=== PATIENT | female | born 1970 | race Caucasian/White ===

== ENCOUNTER 2016-07-06 23:17 | Emergency (ER) | payer OTHER ==
[~2016-07-06 23:17] MED LIST: CIPR-198 PO; HYDR-4003 PO; NPR500T PO; clonidine; suboxone
[2016-07-06 23:27] VITALS: BP 134/88; PULSE 89; RESP 20; O2SAT 100
--- NOTE | 2016-07-06 23:49 | ED.REPORT ---
HPI-Extremity Problem Upper Date of Service Jul 06, 2016 ED Provider: Dr. Bernard Cleary M.D. A 46 year old female with a remote history of cervical cancer presents to the ED with a right hand injury onset yesterday. The patient accidentally hyperextended fingers 2-5 of her right hand while closing a car door. The patient immediately experienced pain radiating up her forearm, described as "heat." The patient's hand and wrist have been intermittently numb ever since. She also reports hearing occasional crackling when she flexes her fingers. The patient denies other symptoms or injury/trauma. Nursing Notes Stated Complaint: RT HAND INJURY Chief Complaint: Extremity Trauma Nursing Notes Reviewed: Yes Allergies: Coded Allergies: Sulfa (Sulfonamide Antibiotics) (Verified Allergy, Severe, anaphylaxis, 07/06/16) cinnamon (Verified Allergy, Severe, Anaphylaxis, 07/06/16) Scheduled Ciprofloxacin (Ciprofloxacin) 500 Mg Tablet 500 MG PO BID Famotidine (Pepcid) 20 Mg Tablet 20 MG PO BID Scheduled PRN Hydrocodone-Acetaminophen 5-325 mg (Hydrocodone-Acetaminophen 5-325 mg) 1 Each Tablet 1 TABLET PO Q4H PRN PRN For Pain Naproxen (Naproxen) 500 Mg Tab 500 MG PO BID PRN PRN For Pain Naproxen (Naprosyn) 500 Mg Tablet 500 MG PO BID PRN PRN For Pain Miscellaneous Medications ([suboxone]) ([clonidine]) General Time Seen by MD: 23:48 Chief Complaint Hand injury right Hx Obtained From: Patient Arrived By: Walk-in Onset Occurred: Yesterday Symptom Duration: Since onset Location: : Forearm right: Hand right: Wrist right Quality: Painful (Heat) Severity: Current: Moderate Severity: Maximum: Moderate Associated with: Reports: Numb extremities, Denies: Fever, Unable to move joint Pertinent Negative: Relieved by nothing Immunizations: Unknown Recent Healthcare: No recent doctor visit Past Medical History Past Medical History Cervical cancer Past Surgical History Fallopian tube surgery Unilateral left oophorectomy Reports: Hysterectomy Smoking History Current Every Day Smoker Social History Alcohol Use: 1-3 per day Drug Use: Denies drug use Ambulatory Status Independent Review of Systems Review of Systems Note: + "Crackling" with right finger flexion Constitutional: Denies: Fever Musculoskeletal: Reports: Extremity pain (Right forearm, hand), Joint pain ( Right wrist) Neurologic: Reports: Numbness (Right hand and wrist) Complete sys rev & neg: except as marked. Respiratory: Denies: Non-productive cough, Shortness of breath GI: Denies: Diarrhea, Vomiting Physical Exam Initial Vital Signs Vital Signs (First) Date Time Temp Pulse Resp B/P Pulse Ox O2 Delivery O2 Flow Rate FiO2 07/06/16 23:27 36.6 89 20 134/88 100 Room Air Initial VS: Reviewed Head / Eyes: Atraumatic, Normocephalic ENT: Conjunctiva normal, No scleral icterus Neck: Supple, Full range of motion Skin: Warm, Dry, No cyanosis Neurologic: Alert, Oriented, Nonfocal Psychiatric: Mood/affect normal, Behavior normal, Normal thought content General/Constitutional: Awake, Alert, No acute distress Wrist / Hand: Full range of motion, No swelling, No deformity, Neurologic intact, Vascular intact Right Wrist: Positive: Tenderness present... Interpretation & Diagnostics X-Ray Interpretation Study Performed: 2 View X-Ray Ordered: Hand right Interpretation / Wet Read by: Wet read ED physician Interpretation: Normal exam Study Performed: 2 View X-Ray Ordered: Wrist right Interpretation / Wet Read by: Wet read ED physician Interpretation: Normal exam Re-Eval/Medical Decision Med Decision/Clinical Course 46-year-old Cipro flexion injury of the wrist. No fracture noted. Placed in a thumb spica Velcro splint for immobilization and protection of the wrist. Elevation and ice recommended. Follow up with PCP. Source of Hx: Old records Re-Evaluation/Progress : Time of Eval: 00:56 Patient Status: Condition improved Re-Evaluation/Progress Note: Discussed with patient x-ray results, diagnosis, and plan for soft splint and discharge. Follow-up and return to the ER instructions given. Patient agrees with plan for care and all questions were addressed. Counseled Regarding: Diagnosis, Need for follow-up, When/why to return to ED Discharge & Departure Shift Change Sign-Out Response to Therapy: Improved Impression: Primary Impression: Sprain of wrist Encounter type: initial encounter Laterality: right Qualified Code: S63.501A - Unspecified sprain of right wrist, initial encounter Disposition: Home Discharge Condition All VS Reviewed: Yes Condition: Improved Patient Instructions: Wrist Injury (ED) Additional Instructions: Elevate whenever possible above the level of the heart. Wear splint as long as it is tender. Ice frequently in the first twenty-four hours. You can switch over to heat after that Follow-up with your doctor in the office. Return if any immediate issues. Naprosyn twice daily with food. Referrals: Gaviota Russell MD (PCP) Scribe Attestation Portions of this note were transcribed by Nena Preston. I, Dr. Cleary, personally performed the history, physical exam, and medical decision-making; I reviewed and confirmed the accuracy of the information in the transcribed note. Signed by: Tika Qureshi, 07/07/2016, 01:50 copies to: Gaviota Russell MD, Christopher W MD Jul 06, 2016 23:49 NENA PRESTON Jul 07, 2016 00:14
[2016-07-07] MEDS ORDERED: FAMO20T PO (00:59)
[2016-07-07] MEDS ORDERED: NAPR500T PO (00:59)
--- NOTE | 2016-07-07 09:09 | DRSVH ---
PROCEDURE: X-RAY RIGHT HAND, TWO VIEWS ([id number]) INDICATIONS: fall, numbness TECHNIQUE: 2 views of the hand(s) acquired. COMPARISON: None. FINDINGS: Bones: No fractures or dislocations. Carpal bones are normally aligned. No suspicious bony lesions . Soft tissues: No suspicious soft tissue calcifications. IMPRESSION: No displaced fracture seen. If there is continued pain, followup exam or additional samuel ging such as MRI or CT could be performed for further assessment. Dictated by: Anthony GABRIEL Interpreted: Missy Perales MD on 07/07/2016 at 9:08 Transcribed by: SUNNY on 07/07/2016 at 9:09 Approved by: Missy Perales M.D. on 07/07/2016 at 14:53
--- NOTE | 2016-07-07 09:10 | DRSVH ---
PROCEDURE: X-RAY RIGHT WRIST COMPLETE, MINIMUM THREE VIEWS ([id number]) INDICATIONS: fall, numbness TECHNIQUE: 4 views of the wrist were acquired. COMPARISON: None. FINDINGS: Bones: No fractures or dislocations. No suspicious bony lesions. Scaphoid view: Intact scaphoid. Soft tissues: No suspicious soft tissue calcifications. IMPRESSION: No displaced fracture seen. If there is continued pain, followup exam or additional samuel ging such as MRI or CT could be performed for further assessment. Dictated by: Anthony Grimes [facility] Interpreted: Missy Perales MD on 07/07/2016 at 9:09 Transcribed by: SUNNY on 07/07/2016 at 9:09 Approved by: Missy Perales M.D. on 07/07/2016 at 14:53
== END 2016-07-07 01:30 | disposition home or self-care (01) ==
LOC: SED 23:17
DX: S63.501A Unspecified sprain of right wrist, initial encounter (principal); X50.1XXA Overexertion from prolonged static or awkward postures, initial encounter; Y92.410 Unspecified street and highway as the place of occurrence of the external cause; Y93.89 Activity, other specified; Y99.8 Other external cause status; F17.200 Nicotine dependence, unspecified, uncomplicated; Z85.41 Personal history of malignant neoplasm of cervix uteri; Z88.2 Allergy status to sulfonamides

== ENCOUNTER 2016-08-05 00:36 | Emergency (ER) | payer OTHER ==
[~2016-08-05] VITALS: Ht 152.4 cm; Wt 77.3 kg
[~2016-08-05 00:36] MED LIST changes: +FAMO20T PO; +NAPR500T PO
[2016-08-05 00:40] VITALS: BP 151/84; PULSE 112; RESP 20; O2SAT 99
--- NOTE | 2016-08-05 01:10 | ED.REPORT ---
HPI-Extremity Problem Lower Date of Service Aug 05, 2016 ED Provider: Dr. Coats Pt is a 46 y/o female presenting to the ED due to right ankle injury onset prior to arrival. The patient was sitting with her right leg crossed and then stood up and stepped with her left foot and followed by her right foot which she describes as being asleep and heard a crunch sound. Pt c/o associated swelling of the right ankle. She denies numbness/weakness of the leg or foot, any other injuries. She has been able to ambulate since the injury. Nursing Notes Stated Complaint: RT ANKLE PAIN Chief Complaint: Extremity Trauma Nursing Notes Reviewed: Yes Allergies: Coded Allergies: Sulfa (Sulfonamide Antibiotics) (Verified Allergy, Severe, anaphylaxis, 08/05/16) cinnamon (Verified Allergy, Severe, Anaphylaxis, 08/05/16) Scheduled Ciprofloxacin (Ciprofloxacin) 500 Mg Tablet 500 MG PO BID Famotidine (Pepcid) 20 Mg Tablet 20 MG PO BID Scheduled PRN Hydrocodone-Acetaminophen 5-325 mg (Hydrocodone-Acetaminophen 5-325 mg) 1 Each Tablet 1 TABLET PO Q4H PRN PRN For Pain Naproxen (Naproxen) 500 Mg Tab 500 MG PO BID PRN PRN For Pain Naproxen (Naprosyn) 500 Mg Tablet 500 MG PO BID PRN PRN For Pain Miscellaneous Medications ([suboxone]) ([clonidine]) General Time Seen by MD: 01:10 Chief Complaint Ankle injury right Hx Obtained From: Patient Arrived By: Walk-in Onset Occurred: Just prior to arrival Symptom Duration: Since onset Location: : Ankle right Quality: Painful Severity: Current: Moderate Severity: Maximum: Moderate Similar Sx Previous: No Past Medical History Past Medical History Cervical cancer Past Surgical History Fallopian tube surgery Unilateral left oophorectomy Reports: Hysterectomy Smoking History Current Every Day Smoker Social History Alcohol Use: 1-3 per day Drug Use: Denies drug use Ambulatory Status Independent Review of Systems Constitutional: Denies: Chills, Fever Musculoskeletal: Reports: Extremity pain, Extremity swelling Neurologic: Denies: Numbness, Weakness Complete sys rev & neg: except as marked. Physical Exam Initial Vital Signs Vital Signs (First) Date Time Temp Pulse Resp B/P Pulse Ox O2 Delivery O2 Flow Rate FiO2 08/05/16 00:40 36.0 112 20 151/84 99 Room Air Initial VS: Reviewed Head / Eyes: Atraumatic, Normocephalic, PERRL ENT: Mucous membranes moist, Conjunctiva normal, No scleral icterus Neck: Supple, Full range of motion Respiratory: Breath sounds normal, Clear to auscultation, No respiratory distress Cardiovascular: Regular rate & rhythm, Heart sounds normal, Intact distal pulses Abdomen / GI: Soft, Non-tender Upper Extremities: Vascular intact, Neuro intact, No swelling, No tenderness Skin: Warm, Dry, No cyanosis Neurologic: Alert, Oriented, Nonfocal Psychiatric: Mood/affect normal, Behavior normal, Normal thought content Lower Extremity / Pelvis / MS: No deformity, Neurologic intact, Vascular intact , No compartment syndrome, No circumferential injury Ankle / Foot: No deformity, Neurologic intact, Vascular intact, No compartment syndrome Lateral malleoulus soft tissue swelling General/Constitutional: Awake, Alert, No acute distress, Cooperative, Not toxic appearing Interpretation & Diagnostics X-Ray Interpretation Study Performed: 3 view X-Ray Ordered: Ankle right Interpretation / Wet Read by: Wet read ED physician Interpretation: Normal exam, No fracture/dislocation X-Ray Ordered: Knee right Interpretation / Wet Read by: Wet read ED physician Interpretation: Normal exam, No fracture/dislocation Re-Eval/Medical Decision Med Decision/Clinical Course 46-year-old female rolled her right ankle. Pop in the right lateral ankle. She now is pain just below her right knee As well as lateral malleolus. X-rays are reassuring. She is neurovascularly intact. She has placement Cam BOOT and crutches. Short course of [place] prescribed for pain. Motrin as well. Orthopedic referral given routine opiate warnings were given as well. Re-Evaluation/Progress : Time of Eval: 01:30 Re-Evaluation/Progress Note: Pt rechecked. Informed pt of plan for treatment. Pt understands and agrees with plan for treatment. F/U and RTER warnings given. All questions addressed. Counseled Regarding: Diagnosis, Need for follow-up, When/why to return to ED Discharge & Departure Impression: Primary Impression: Right ankle sprain Encounter type: initial encounter Involved ligament of ankle: unspecified ligament Qualified Code: S93.401A - Sprain of unspecified ligament of right ankle, initial encounter Disposition: Home Discharge Condition All VS Reviewed: Yes Condition: Stable Patient Instructions: Ankle Sprain (GEN), Crutch Instructions (ED) Additional Instructions: I do not appreciate a fracture on the x-ray today. Use a cam boot and crutches for all ambulation until a follow-up appointment. Motrin 600 mg every 8 hours as needed for moderate pain. [place] one every 6 hours as needed for more severe pain. Elevate her foot as much as possible. Do not put any weight on the injured foot. Do not drive or drink alcohol or consume acetaminophen will take the [place]. Return if any problems or any worsening symptoms. Call Sunday to set up follow-up. Return to the emergency department for any new or worsening symptoms. Referrals: Gaviota Russell MD (PCP) Bernard Godinez MD Attestation Portions of this note were transcribed by Chris Bey. I, Dr. Coats personally performed the history, physical exam and medical decision-making; I reviewed and confirmed the accuracy of the information in the transcribed note. Signed by Tika Pizano, 08/05/16 - [id number] copies to: Gaviota Russell MD; Bernard Godinez MD, Todd P DO Aug 05, 2016 01:10 CHRIS BEY Aug 05, 2016 01:21
[2016-08-05] MEDS ORDERED: _HYDROcodone/APAP 5-325 mg Tablet PO PRN (01:30)
[2016-08-05 03:26] VITALS: BP 127/90; PULSE 91; RESP 16; O2SAT 98
--- NOTE | 2016-08-05 06:34 | DRSVH ---
PROCEDURE: X-RAY RIGHT KNEE, ONE OR TWO VIEWS ([id number]) INDICATIONS: 46-year-old female with lower knee and right lower leg pain. TECHNIQUE: 2 views of the knee and lower leg were acquired. COMPARISON: None. FINDINGS: Bones: No fractures or dislocations. No suspicious bony lesions. Soft tissues: No joint effusion. No suspicious soft tissue calcifications. IMPRESSION: No acute bony injuries of the right lower leg. Dictated by: Prince Nava M.D. on 08/05/2016 at 6:32 Approved by: Prince Nava M.D. on 08/05/2016 at 6:33
--- NOTE | 2016-08-05 06:40 | DRSVH ---
PROCEDURE: X-RAY RIGHT ANKLE, MINIMUM THREE VIEWS ([id number]) INDICATIONS: 46-year-old female with right lateral malleolar deformity. TECHNIQUE: 3 views of the ankle were acquired. COMPARISON: None. FINDINGS: Bones: No fractures or dislocations. Ankle mortise is normally aligned. No suspicious bony lesions . Soft tissues: There is lateral malleolar soft tissue swelling. No tibiotalar joint effusion. Achil les tendon appears normal. IMPRESSION: Lateral malleolar soft tissue swelling, without underlying acute bony injury identified. Dictated by: Prince Nava M.D. on 08/05/2016 at 6:37 Approved by: Prince Nava M.D. on 08/05/2016 at 6:39
== END 2016-08-05 03:15 | disposition home or self-care (01) ==
LOC: SED 00:36
DX: S93.401A Sprain of unspecified ligament of right ankle, initial encounter (principal); X50.1XXA Overexertion from prolonged static or awkward postures, initial encounter; Y93.89 Activity, other specified; Y92.9 Unspecified place or not applicable; Y99.9 Unspecified external cause status; F17.200 Nicotine dependence, unspecified, uncomplicated; Z85.41 Personal history of malignant neoplasm of cervix uteri; Z90.710 Acquired absence of both cervix and uterus; Z88.2 Allergy status to sulfonamides

== ENCOUNTER 2017-02-03 20:44 | Emergency (ER) | payer OTHER ==
[~2017-02-03] VITALS: Ht 152.4 cm; Wt 77.3 kg
[2017-02-03 20:48] VITALS: BP 144/98; PULSE 94; RESP 16; O2SAT 95
--- NOTE | 2017-02-03 21:49 | ED.REPORT ---
HPI-Rash / Abscess Date of Service Feb 03, 2017 ED Provider: Ximena Horton MD Pt is an 46 year old female with a history of HTN and CA who presents to the ED complaining of a "lump" on the left side of her neck onset this morning. She c/ o associated nose swelling with erythema, and aching nasal pain. She denies fever and any other symptoms. The pt reports that her dog had accidentally scratched her this morning. Nursing Notes Stated Complaint: LUMP ON NECK Chief Complaint: General Complaint Nursing Notes Reviewed: Yes Allergies: Coded Allergies: Sulfa (Sulfonamide Antibiotics) (Verified Allergy, Severe, anaphylaxis, 08/05/16) cinnamon (Verified Allergy, Severe, Anaphylaxis, 08/05/16) Scheduled Amoxicillin/Clav K 875-125 mg (Augmentin 875-125 mg) 1 Each Tablet 1 TABLET PO BID Ciprofloxacin (Ciprofloxacin) 500 Mg Tablet 500 MG PO BID Famotidine (Pepcid) 20 Mg Tablet 20 MG PO BID Scheduled PRN Hydrocodone-Acetaminophen 5-325 mg (Hydrocodone-Acetaminophen 5-325 mg) 1 Each Tablet 1 TABLET PO Q4H PRN PRN For Pain Naproxen (Naproxen) 500 Mg Tab 500 MG PO BID PRN PRN For Pain Naproxen (Naprosyn) 500 Mg Tablet 500 MG PO BID PRN PRN For Pain Miscellaneous Medications ([suboxone]) ([clonidine]) General Time Seen by MD: 21:49 Chief Complaint Other (neck swelling) Hx Obtained From: Patient Arrived By: Walk-in Onset Occurred: 5 - 8 hours ago Symptom Duration: Since onset Quality: Aching Severity: Current: Mild Severity: Maximum: Mild Recent Healthcare: No recent doctor visit, No recent hospitalization Similar Sx Previous: No Past Medical History Past Medical History Cervical cancer Past Surgical History Fallopian tube surgery Unilateral left oophorectomy Reports: Hysterectomy Smoking History Current Every Day Smoker Social History Alcohol Use: 1-3 per day Drug Use: Denies drug use Ambulatory Status Independent Review of Systems + nasal pain + lump on left side of neck + nasal swelling + nasal erythema Constitutional: Denies: Fever Complete sys rev & neg: except as marked. Physical Exam Initial Vital Signs Vital Signs (First) Date Time Temp Pulse Resp B/P Pulse Ox O2 Delivery O2 Flow Rate FiO2 02/03/17 20:48 37.0 94 16 144/98 95 Room Air Initial VS: Reviewed, Vital signs abnormal Head / Eyes: Atraumatic, Normocephalic Neck: Supple, Full range of motion Respiratory: Breath sounds normal, Clear to auscultation, No respiratory distress Cardiovascular: Regular rate & rhythm, Heart sounds normal, Intact distal pulses Extremities: Vascular intact, Neuro intact Neurologic: Alert, Oriented, Nonfocal General/Constitutional: Awake, Alert Skin: Atraumatic, Warm, Dry, Intact ENT: Atraumatic, Airway patent Swelling inside of her nose with erythema Neck: Atraumatic, Full range of motion Mild adenopathy to left anterior cervical chain. Re-Eval/Medical Decision Med Decision/Clinical Course The patient was scratched by her dog yesterday morning and has had swelling and pain. She has cellulitis and given it was by her dogs pod will be treated like a dog bite. The patient will also be given mupirocin. Source of Hx: Old records Re-Evaluation/Progress : Time of Eval: 21:59 Re-Evaluation/Progress Note: Pt rechecked. Informed pt of plan for discharge. Pt understands and agrees with plan for discharge. F/U instructions and RTER warnings given. All questions addressed. Counseled Regarding: Diagnosis, Need for follow-up, When/why to return to ED Discharge & Departure Impression: Primary Impression: Dog scratch Additional Impression: Cellulitis of nose Disposition: Home Discharge Condition All VS Reviewed: Yes Condition: Stable Patient Instructions: Cellulitis (ED) Additional Instructions: Thank you for entrusting us with your care today. Call your primary care provider on Sunday for any new or concerning symptoms. Return to the emergency department for any new or concerning symptoms such as worsening symptoms, nausea, or fever. Referrals: Gaviota Russell MD (PCP) Scribe Attestation Portions of this note were transcribed by Angelique Crowley. I, Dr. Horton personally performed the history, physical exam and medical decision-making; I reviewed and confirmed the accuracy of the information in the transcribed note. Signed by : Tika Dent, 02/03/17. copies to: Gaviota Russell MD, Jena M MD Feb 03, 2017 21:49 Angelique Carranza Feb 03, 2017 21:54
[2017-02-03] MEDS ORDERED: AMOX-366 PO (21:54)
[2017-02-03] MEDS ORDERED: Mupirocin 2% 22 Gm Ointment TOPICAL ONE (21:55)
[2017-02-03] MEDS ORDERED: Amoxicillin-Clav 875-125 mg Tablet PO ONE ×2 (21:55)
[2017-02-03 22:09] VITALS: BP 143/91; PULSE 86; RESP 16; O2SAT 100
== END 2017-02-03 22:11 | disposition home or self-care (01) ==
LOC: SED 20:44
DX: R22.1 Localized swelling, mass and lump, neck (principal); J34.0 Abscess, furuncle and carbuncle of nose; W54.8XXA Other contact with dog, initial encounter; Y93.89 Activity, other specified; Y92.89 Other specified places as the place of occurrence of the external cause; Y99.8 Other external cause status; I10 Essential (primary) hypertension; C53.9 Malignant neoplasm of cervix uteri, unspecified; F17.200 Nicotine dependence, unspecified, uncomplicated; Z90.710 Acquired absence of both cervix and uterus; Z88.2 Allergy status to sulfonamides; Z91.018 Allergy to other foods